=== PATIENT | female | born 1955 | race Two or more races ===

== ENCOUNTER 2020-11-12 12:45 | Inpatient (IN) | payer OTHER ==
[~2020-11-12] VITALS: Ht 152.4 cm; Wt 54.4 kg
[2020-11-20] MEDS ORDERED: OXYBUTYNIN CHLO10 MG (14:57)
== END 2020-11-22 15:31 | disposition home or self-care (01) | DRG 741 ==
LOC: O/R 11-20 05:20 → SURH 11-20 12:15
PROVIDERS: ADMIT Specialist; ATTEND Specialist
PROC: 0UT24ZZ Resection of Bilateral Ovaries, Percutaneous Endoscopic Approach (ICD-10-PCS; 2020-11-20)
PROC: 0UT74ZZ Resection of Bilateral Fallopian Tubes, Percutaneous Endoscopic Approach (ICD-10-PCS; 2020-11-20)
PROC: 07BC4ZZ Excision of Pelvis Lymphatic, Percutaneous Endoscopic Approach (ICD-10-PCS; 2020-11-20)
PROC: 0UT94ZZ Resection of Uterus, Percutaneous Endoscopic Approach (ICD-10-PCS; principal; 2020-11-20 12:15)
DX: C54.1 Malignant neoplasm of endometrium (principal)